=== PATIENT | female | born 1985 | race Two or more races ===

== ENCOUNTER 2024-03-22 06:15 | Day surgery (SDC) | payer MEDICAID, SELFPAY ==
[2024-03-21 08:13] VITALS: BMI 36.5
[2024-03-21 09:11] LABS: Basophils % (Auto) 0 % (0-2.5); Eosinophils # (Auto) 0.2 Thou/mm3 (0.0-0.5); Eosinophils % (Auto) 3 % (0-10); Hematocrit 40.1 % (36.0-46.0); Hemoglobin 13.4 g/dL (12.0-16.0); Immature Granulocytes % (Auto) 0 % (0-0); Immature Granulocytes Auto 0.02 Thou/mm3 (0.00-0.00); Lymphocytes # (Auto) 1.5 Thou/mm3 (1.0-4.8); Lymphocytes % (Auto) 24 % (10-50); Mean Corpuscular HGB Conc 33.4 g/dl (31.0-37.0); Mean Corpuscular Volume 87 fL (80-100); Monocytes # (Auto) 0.4 Thou/mm3 (0.0-0.8); Monocytes % (Auto) 6 % (0-12); Neutrophils # (Auto) 4.4 Thou/mm3 (1.8-7.7); Neutrophils % (Auto) 67 % (37-80); Nucleated Red Blood Cell % 0 /100 WBC (0); Platelet Count 218 Thou/mm3 (140-440); RDW Standard Deviation 42.4 fL (36.4-46.3); Red Blood Count 4.62 Miln/mm3 (4.00-5.20); White Blood Count 6.5 Thou/mm3 (3.6-11.0)
[2024-03-21 09:18] LABS: Anion Gap 8 (7-16); BUN/Creatinine Ratio 24 Ratio (12-20); Blood Urea Nitrogen 12 mg/dL (9-23); Calcium 9.4 mg/dL (8.3-10.6); Chloride 106 mMol/L (98-107); Creatinine (Component) 0.5 mg/dL (0.6-1.3); Estimated Creatinine Clearance 144.6 mL/min (>60); Glucose 94 mg/dL (74-106); Osmolality,Calculated 277 (275-295); Potassium 4.1 mMol/L (3.4-5.1); Sodium 139 mMol/L (136-145); eGFR > 60 See Note
[2024-03-21 09:27] LABS: HCG,Qualitative Serum Negative
[2024-03-22] VITALS (8 sets, daily range): BP systolic 112–140; BP diastolic 66–80; PULSE 81–134; RESP 13–20; TEMP 36.2–36.6; O2SAT 96–100; BMI 36.6
--- NOTE | 2024-03-22 09:38 | PD.SUROPNT ---
Date of Procedure 03/22/24 Pre Op Diagnosis Left shoulder soft tissue mass Post Op Diagnosis Subcutaneous soft tissue mass of left shoulder Procedure Excision of subcutaneous soft tissue mass from left shoulder Findings An approximately 10 cm lipomatous subcutaneous soft tissue mass on the anterior surface of the left shoulder Procedure Description Patient brought into the operating room in supine position. After administration of general endotracheal anesthesia, patient was placed in right lateral decubitus position. Her left shoulder was prepped and draped in standard surgical manner. She was noted to have a large soft tissue mass on anterior surface of the left shoulder. After administration of local anesthesia an approximately 12 cm elliptical incision was made and dissection was deepened into soft tissue. The underlying subcutaneous soft tissue mass was circumferentially dissected off surrounding tissue with electrocautery and excised. The wound was washed and irrigated and hemostasis achieved using electrocautery. The mass was measuring to be approximately 10 cm in diameter, it was lipomatous in nature. Subcutaneous tissue closed with interrupted sutures using 2-0 Vicryl and the incision was closed with 4-0 Monocryl in subcuticular fashion. Dermabond and pressure sterile dressings applied. Patient tolerated procedure well. She was placed in supine position and extubated. She was breathing spontaneously and without difficulty and was transferred to postanesthesia care in stable condition. Instruments, needles and sponge counts were reported to be correct x 2. Anesthesia GETA and local Pathology / specimen Other (Left shoulder soft tissue mass) Estimated Blood Loss 5 Condition Stable Disposition PACU Surgeon Yasmany Brown MD Surgical Staff Operation Date: 03/22/24 08:30 Case Staff COAT CHECKER: Blane Krishnamurthy RNtanning salon attendant: Laura Roberts
--- NOTE | 2024-03-22 09:53 | SUR.PHASEI ---
0953: Pt. wakes to name then drifts back to sleep, vitals stable, breathing unlabored, no complaint of pain or nausea, dressing to left shoulder CDI, no active bleed noted, bilateral radial pulses strong and regular, report received from Toney KEMP and Florence garcia RNA.
[2024-03-22] MEDS: fentaNYL CIT INJ 50 mCg/ML AMP 2ML IV (10:27)
--- NOTE | 2024-03-22 10:53 | SUR.PHASEII ---
1053: Pt. AAOx4, vitals stable, breathing unlabored, no complaint of pain or nausea, dressing to left shoulder CDI, no active bleed noted, pt. tolerated sips of water well, pt. ambulated to wheelchair with steady gait and no assist, no complications. Gave discharge instructions to the pt. and her ride using laundry aide, both verbalized understanding and had no further questions. Pt. left with all personal belongings.
== END 2024-03-22 10:53 | disposition home or self-care (01) ==
PROVIDERS: Anesthesiology; PCP Physician Assistant; Referring Provider Surgery; Visit Provider Surgery
PROC: (CPT 23071; principal; 2024-03-22 08:15)
DX: D21.10 Benign neoplasm of connective and other soft tissue of unspecified upper limb, including shoulder (principal)
CPT/HCPCS: 23071; 36415; 80048; 84703; 85025; A4217; A4649; J0330; J0690; J1100; J2405; J2704; J3010; J3490